=== PATIENT | female | born 1945 | race Caucasian/White ===

== ENCOUNTER 2018-03-09 15:59 | Outpatient (CLI) | payer MEDICARE, OTHER ==
[2018-03-09 16:23] LABS: BASOPHILS # (AUTO) 0.1 10^3/uL (0.0-0.1); EOSINOPHILS # (AUTO) 0.2 10^3/uL (0.0-0.7); EOSINOPHILS % (AUTO) 3.3 %; HGB - HEMOGLOBIN 11.7 g/dL (12.0-16.0); LYMPHOCYTES # (AUTO) 1.7 10^3/uL (1.5-3.5); LYMPHOCYTES % (AUTO) 31.3 %; MEAN CORPUSCULAR HGB CONC 32.7 g/dL (32.0-36.0); MEAN CORPUSCULAR VOLUME 91.7 fL (81.0-99.0); MEAN PLATELET VOLUME 7.2 fL (7.9-10.8); MONOCYTES # (AUTO) 0.5 10^3/uL (0.0-1.0); MONOCYTES % (AUTO) 9.7 %; NEUTROPHILS # (AUTO) 2.9 10^3/uL (1.5-6.6); NEUTROPHILS % (AUTO) 54.7 %; PLT - PLATELET COUNT 276 10^3/uL (130-450); RED BLOOD COUNT 3.89 10^6/uL (4.20-5.40); RED CELL DISTRIBUTION WIDTH 13.8 % (12.0-15.0); WHITE BLOOD COUNT 5.3 x10^3/uL (4.8-10.8)
[2018-03-09 16:30] LABS: PT - PROTHROMBIN TIME 11.8 secs (9.9-12.6)
[2018-03-09 16:35] LABS: ALBUMIN 4.2 g/dL (3.2-5.5); ALBUMIN/GLOBULIN RATIO 1.4 (1.0-2.2); BILIRUBIN,TOTAL 0.6 mg/dL (0.2-1.0); CALCIUM 8.9 mg/dL (8.5-10.3); CREATININE 1.2 mg/dL (0.4-1.0); TOTAL PROTEIN 7.2 g/dL (6.7-8.2)
[2018-03-09 17:27] LABS: THYROID STIMULATING HORMONE 3.03 uIU/mL (0.34-5.60)
[2018-03-09 17:29] LABS: FREE T4 (FREE THYROXINE) 0.99 ng/dL (0.58-1.64)
== END 2018-03-09 16:00 | disposition home or self-care (01) ==
LOC: LAB 15:59
PROVIDERS: ATTEND Internal Medicine Cardiovascular Disease
DX: I10 Essential (primary) hypertension (principal)
CPT/HCPCS: 36415; 80053; 84439; 84443; 85025; 85610

== ENCOUNTER 2018-05-18 13:44 | Emergency (ER) | payer MEDICARE, OTHER ==
[2018-05-18 15:19] LABS: BASOPHILS # (AUTO) 0.1 10^3/uL (0.0-0.1); BASOPHILS % (AUTO) 1.4 %; EOSINOPHILS # (AUTO) 0.2 10^3/uL (0.0-0.7); EOSINOPHILS % (AUTO) 3.8 %; HGB - HEMOGLOBIN 12.3 g/dL (12.0-16.0); LYMPHOCYTES # (AUTO) 1.7 10^3/uL (1.5-3.5); LYMPHOCYTES % (AUTO) 31.2 %; MEAN CORPUSCULAR HGB CONC 33.6 g/dL (32.0-36.0); MEAN CORPUSCULAR VOLUME 89.4 fL (81.0-99.0); MEAN PLATELET VOLUME 7.2 fL (7.9-10.8); MONOCYTES # (AUTO) 0.4 10^3/uL (0.0-1.0); MONOCYTES % (AUTO) 6.4 %; NEUTROPHILS # (AUTO) 3.2 10^3/uL (1.5-6.6); NEUTROPHILS % (AUTO) 57.2 %; PLT - PLATELET COUNT 327 10^3/uL (130-450); RED BLOOD COUNT 4.11 10^6/uL (4.20-5.40); RED CELL DISTRIBUTION WIDTH 13.9 % (12.0-15.0); WHITE BLOOD COUNT 5.6 x10^3/uL (4.8-10.8)
[2018-05-18 15:31] LABS: ALBUMIN 4.6 g/dL (3.2-5.5); ALBUMIN/GLOBULIN RATIO 1.5 (1.0-2.2); BILIRUBIN,TOTAL 0.5 mg/dL (0.2-1.0); CALCIUM 9.6 mg/dL (8.5-10.3); CREATININE 1.7 mg/dL (0.4-1.0); TOTAL PROTEIN 7.7 g/dL (6.7-8.2)
[2018-05-18 16:27] LABS: BILIRUBIN,URINE NEGATIVE (NEGATIVE); GLUCOSE, URINE (UA) NEGATIVE (NEGATIVE); KETONES,URINE (UA) NEGATIVE (NEGATIVE); LEUKOCYTE ESTERASE, URINE SMALL (NEGATIVE); NITRITE,URINE NEGATIVE (NEGATIVE); OCCULT BLOOD,URINE NEGATIVE (NEGATIVE); PH,URINE 5.5 PH (5.0-7.5); PROTEIN,URINE NEGATIVE (NEGATIVE); UROBILINOGEN,URINE 0.2 (NORMAL) E.U./dL (NORMAL)
[2018-05-18 16:29] LABS: CLARITY,URINE CLEAR (CLEAR)
[2018-05-18 16:38] LABS: BACTERIA,URINE None Seen /HPF (None Seen); RBC,URINE None Seen /HPF (0-5); SQUAMOUS EPITHELIAL CELL,UR MANY Squamous (<= Few)
[2018-05-18] MEDS ORDERED: SODIUM CHLORIDE 0.9% 1,000 ML IV ONE (17:48)
--- NOTE | 2018-05-18 17:49 | ED Physician Documentation ---
History of Present Illness - Stated complaint Stated Complaint: SOA - Chief complaint Chief Complaint: Neuro - History obtained from History obtained from: Patient - Additonal information Additional information: 72-year-old female reports lightheadedness, dizziness and shortness of breath in the mornings since starting 2 new medications. The patient's symptoms resolve as the day progresses.The patient currently is denying any significant dizziness or shortness of breath. The patient denies chest pain, URI symptoms abdominal pain vomiting or diarrhea. Symptoms make her a moderate. No other associated symptoms. 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: Hysterectomy - Present Medications Home Medications: Ambulatory Orders Medication Instructions Recorded Confirmed Atorvastatin [Lipitor] 40 mg PO DAILY 02/20/16 02/20/16 Hydrochlorothiazide 25 mg PO DAILY 02/20/16 02/20/16 Levothyroxine [Synthroid] 75 mcg PO DAILY 02/20/16 02/20/16 Lisinopril [Zestril] 40 mg PO DAILY #30 tablet 02/20/16 Nitroglycerin 0.4 mg SL Q5MIN PRN #1 bot 02/20/16 metFORMIN [Glucophage] 1,000 mg PO BID 02/20/16 02/20/16 Diphenoxylate HCl/Atropine 05/18/18 [Diphenoxylate-Atrop 2.5-0.025] Folic Acid 05/18/18 Omeprazole 05/18/18 Saccharomyces Boulardii [Florastor] 05/18/18 Spironolactone 05/18/18 Ubidecarenone [Coenzyme Q-10] 05/18/18 hydroCHLOROthiazide [Hydrodiuril] 05/18/18 metFORMIN [Glucophage] 05/18/18 traZODone [Desyrel] 05/18/18 - Allergies Allergies/Adverse Reactions: Allergies Allergy/AdvReac Type Severity Reaction Status Date / Time Sulfa (Sulfonamide Allergy Respiratory Verified 05/18/18 13:51 Antibiotics) - Social History Does the pt smoke?: No Smoking Status: Never smoker Does the pt drink ETOH?: No Does the pt have substance abuse?: No - Immunizations Immunizations are current?: Yes - POLST Patient has POLST: No Results - Vitals Vitals: Vital Signs - 24 hr 05/18/18 05/18/18 05/18/18 13:47 16:00 18:03 Temperature 36.1 C L 36.1 C L Heart Rate 80 80 69 Respiratory 22 20 16 Rate Blood Pressure 140/86 H 143/74 H 126/75 O2 Saturation 100 100 100 Oxygen O2 Source Room air - EKG (time done) No standard instances Rate: Rate (enter#) (73 BPM) Rhythm: NSR Intervals: Normal PA, QRS normal Ischemia: Normal ST segments Other comments: Other comments (Normal sinus rhythm with nonspecific changes, no acute ischemic changes) - Labs Labs: Laboratory Tests 05/18/18 05/18/18 05/18/18 15:06 15:06 15:06 WBC 5.6 RBC 4.11 L Hgb 12.3 Hct 36.7 L MCV 89.4 MCH 30.0 MCHC 33.6 RDW 13.9 Plt Count 327 MPV 7.2 L Neut # (Auto) 3.2 Lymph # (Auto) 1.7 [place] # (Auto) 0.4 Eos # (Auto) 0.2 Baso # (Auto) 0.1 Absolute Nucleated RBC 0.00 Nucleated RBC % 0.1 Sodium 132 L Potassium 4.2 Chloride 97 L Carbon Dioxide 23 Anion Gap 12.0 BUN 53 H Creatinine 1.7 H Estimated GFR (MDRD) 29 L Glucose 121 H Calcium 9.6 Total Bilirubin 0.5 AST 22 ALT 12 Alkaline Phosphatase 49 Troponin I < 0.04 Total Protein 7.7 Albumin 4.6 Globulin 3.1 Albumin/Globulin Ratio 1.5 Lipase 46 Urine Color Urine Clarity Urine pH Ur Specific [place] Urine Protein Urine Glucose (UA) Urine Ketones Urine Occult Blood Urine Nitrite Urine Bilirubin Urine Urobilinogen Ur Leukocyte Esterase Urine RBC Urine WBC Ur Squamous Epith Cells Urine Bacteria Ur Microscopic Review Urine Culture Comments 05/18/18 16:12 WBC RBC Hgb Hct MCV MCH MCHC RDW Plt Count MPV Neut # (Auto) Lymph # (Auto) [place] # (Auto) Eos # (Auto) Baso # (Auto) Absolute Nucleated RBC Nucleated RBC % Sodium Potassium Chloride Carbon Dioxide Anion Gap BUN Creatinine Estimated GFR (MDRD) Glucose Calcium Total Bilirubin AST ALT Alkaline Phosphatase Troponin I Total Protein Albumin Globulin Albumin/Globulin Ratio Lipase Urine Color YELLOW Urine Clarity CLEAR Urine pH 5.5 Ur Specific [place] 1.010 Urine Protein NEGATIVE Urine Glucose (UA) NEGATIVE Urine Ketones NEGATIVE Urine Occult Blood NEGATIVE Urine Nitrite NEGATIVE Urine Bilirubin NEGATIVE Urine Urobilinogen 0.2 (NORMAL) Ur Leukocyte Esterase SMALL H Urine RBC None Seen Urine WBC 0-3 Ur Squamous Epith Cells MANY Squamous H Urine Bacteria None Seen Ur Microscopic Review INDICATED Urine Culture Comments NOT INDICATED PD MEDICAL DECISION MAKING - ED course ED course: After IV hydration in the emergency department and food the patient's symptoms have resolved. The patient dizziness seems to be secondary to being placed on a new diuretic. 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 Presently the patient appears appropriate for discharge home in ongoing outpatient management. I discussed this plan with the patient and family who understand and agree. I discussed warning signs and recommended returning to the emergency department immediately for worsening or any concerns. - Sepsis Event Vital Signs: Vital Signs - 24 hr 05/18/18 05/18/18 05/18/18 13:47 16:00 18:03 Temperature 36.1 C L 36.1 C L Heart Rate 80 80 69 Respiratory 22 20 16 Rate Blood Pressure 140/86 H 143/74 H 126/75 O2 Saturation 100 100 100 Oxygen O2 Source Room air Departure - Departure Disposition: 01 Home, Self Care Clinical Impression: Dizziness Medication reaction Qualifiers: Encounter type: initial encounter Qualified Code(s): T50.905A - Adverse effect of unspecified drugs, medicaments and biological substances, initial encounter Condition: Good Instructions: ED Dizziness [facility]O Follow-Up: Jamar Guerra MD [Primary Care Provider] - Within 3 Days Comments: Please follow-up with your primary care and aluminum siding applicator for further medication management. Please return to the emergency department immediately for worsening or any concerns.
--- NOTE | 2018-05-18 18:18 | XRAY Report ---
Procedure Date: 05/18/2018 Accession Number: [id number] / [id number] Procedure: XR - Chest 2 View X-Ray CPT Code: 89141 FULL RESULT: EXAM: CHEST RADIOGRAPHY EXAM DATE: 05/18/2018 02:48 PM. CLINICAL HISTORY: Shortness of air COMPARISON: CHEST 1 VIEW 02/20/2016. TECHNIQUE: 2 views. FINDINGS: Lungs/Pleura: No focal opacities evident. No pleural effusion. No pneumothorax. Normal volumes. Mediastinum: There is a moderate to large hiatal hernia with air-fluid level. The heart size is normal. The trachea is midline. Other: None. IMPRESSION: Moderate to large hiatal hernia. Clear lungs. RADIA
[2018-05-18 20:02] VITALS: BP 144/77
== END 2018-05-18 20:02 | disposition home or self-care (01) ==
LOC: ED 13:44
DX: R42 Dizziness and giddiness (principal); T50.2X5A Adverse effect of carbonic-anhydrase inhibitors, benzothiadiazides and other diuretics, initial encounter; I10 Essential (primary) hypertension; E11.9 Type 2 diabetes mellitus without complications; Z79.84 Long term (current) use of oral hypoglycemic drugs
CPT/HCPCS: 36415; 71046; 80053; 81001; 81003; 83690; 84484; 85025; 87086; 93005; 96360; 99283

== ENCOUNTER 2019-10-20 03:47 | Outpatient (CLI) | payer MEDICARE, OTHER | END 2019-10-20 03:48 | disposition critical access hospital (66) | LOC: EMS 03:47 | PROVIDERS: ATTEND Surgery | DX: S09.92XA Unspecified injury of nose, initial encounter (principal); W18.39XA Other fall on same level, initial encounter; R55 Syncope and collapse; M54.2 Cervicalgia; R11.0 Nausea; Z94.7 Corneal transplant status; Y92.028 Other place in mobile home as the place of occurrence of the external cause; R94.31 Abnormal electrocardiogram [ECG] [EKG] | CPT/HCPCS: A0425; A0427 ==

== ENCOUNTER 2019-10-20 04:27 | Observation (INO) | payer MEDICARE, OTHER ==
[2019-10-20] MEDS ORDERED: SODIUM CHLORIDE 0.9% 500 ML IV STA (04:40)
--- NOTE | 2019-10-20 04:42 | ED Physician Documentation ---
History of Present Illness - Stated complaint Stated Complaint: GLF - Chief complaint Chief Complaint: Trauma Hd/Nk - Additonal information Additional information: This is a 74-year-old female with history of hypertension, type 2 diabetes, a trial fibrillation not on anticoagulation, who presents with facial pain after an episode of syncope. Patient states that she got up to let her dog out, when she was standing up she began to feel lightheaded, and then she passed out and fell forward hitting her face. She woke up and she had severe pain in her face, she had some bleeding as well. She called 911 who brought her here. She is complaining of some pain in her nose, she has a mild headache, she states that her neck hurt earlier but now is feels okay unless she presses on it directly. She denies any chest pain, abdominal pain, blood in her stool, dysuria. She does have a history of atrial fibrillation, But states she is typically in a normal sinus rhythm. 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 - Present Medications Home Medications: Ambulatory Orders Medication Instructions Recorded Confirmed Atorvastatin [Lipitor] 40 mg PO QPM 02/20/16 10/20/19 Levothyroxine [Synthroid] 75 mcg PO QDAC 02/20/16 10/20/19 Lisinopril [Zestril] 40 mg PO DAILY #30 tablet 02/20/16 10/20/19 Omeprazole 20 mg PO BID 05/18/18 10/20/19 Chlorthalidone 25 mg PO DAILY 10/20/19 10/20/19 Cholecalciferol (Vitamin D3) 5,000 unit PO DAILY 10/20/19 10/20/19 [Vitamin D3] Cranberry Conc/Ascorbic Acid [Eql 1 cap PO DAILY 10/20/19 10/20/19 Cranberry 6,000 mg Softgel] Metoprolol Succinate 200 mg PO DAILY 10/20/19 10/20/19 - Allergies Allergies/Adverse Reactions: Allergies Allergy/AdvReac Type Severity Reaction Status Date / Time Sulfa (Sulfonamide Allergy Respiratory Verified 05/18/18 13:51 Antibiotics) - Social History Does the pt smoke?: No Smoking Status: Never smoker Does the pt drink ETOH?: No Does the pt have substance abuse?: No - Immunizations Immunizations are current?: Yes - POLST Patient has POLST: No PD ED PE NORMAL - General General: Alert and oriented X 3, No acute distress - HEENT HEENT: Other (Abrasion over the nose and there is edema and tenderness of the nose as well. There is some ecchymosis around the bilateralOrbits. Other than the nose the face is nontender to palpation. There is some dried blood in the hair but a careful review of the scalp shows no lacerations, no hematomas.) - Neck Neck: Other (C-collar in place, there is mild tenderness to palpation of the mid C-spine.) - Cardiac Cardiac: Other (Tachycardic, irregularly irregular rhythm.) - Respiratory Respiratory: No respiratory distress, Clear bilaterally, Other (No chest wall tenderness) - Abdomen Abdomen: Soft, Non tender, Non distended - Back Back: Other (Back is atraumatic in appearance, there is no midline tenderness palpation of the thoracic or lumbar spine, or the sacrum) - Extremities Extremities: No deformity, No tenderness to palpate, Normal ROM s pain, No edema - Neuro Neuro: Alert and oriented X 3, 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, No motor deficit, No sensory deficit, Normal speech Results - Vitals Vitals: Vital Signs - 24 hr 10/20/19 10/20/19 10/20/19 04:31 06:15 06:22 Temperature 36.7 C Heart Rate 94 74 70 Respiratory 20 20 20 Rate Blood Pressure 161/99 H 157/83 H 150/86 H O2 Saturation 96 96 10/20/19 10/20/19 06:26 08:00 Temperature Heart Rate 71 64 Respiratory 15 Rate Blood Pressure 151/90 H 133/71 H O2 Saturation 97 Oxygen O2 Source Room air - EKG (time done) 4:49 Other comments: Other comments (Rate 141, rhythm atrial fibrillation, there is probable LVH with a very repolarization abnormality/lateral ST depression, this may also be a rate related. There is no ST segment elevation.) 7:01 Other comments: Other comments (Rate 68, rhythm sinus, there is LVH with slight less than [address] depression in 1 and V6, suggestive of a repolarization abnormality. There is no significant ST elevation. QTc 465) - Labs Labs: Laboratory Tests 10/20/19 10/20/19 10/20/19 04:49 04:49 04:49 WBC 9.5 RBC 4.80 Hgb 15.2 Hct 45.4 MCV 94.6 MCH 31.7 H MCHC 33.5 RDW 13.6 Plt Count 326 MPV 9.2 Neut # (Auto) 6.8 H Lymph # (Auto) 1.7 [place] # (Auto) 0.8 Eos # (Auto) 0.1 Baso # (Auto) 0.1 Absolute Nucleated RBC 0.00 Nucleated RBC % 0.0 PT 11.7 INR 1.0 Sodium 139 Potassium 3.1 L Chloride 97 L Carbon Dioxide 29 Anion Gap 13.0 BUN 26 H Creatinine 1.4 H Estimated GFR (MDRD) 37 L Glucose 180 H Calcium 9.5 Total Bilirubin 0.5 AST 25 ALT 16 Alkaline Phosphatase 60 Troponin I High Sens B-Natriuretic Peptide Total Protein 7.9 Albumin 4.5 Globulin 3.4 Albumin/Globulin Ratio 1.3 Lipase 41 TSH Urine Color Urine Clarity Urine pH Ur Specific [place] Urine Protein Urine Glucose (UA) Urine Ketones Urine Occult Blood Urine Nitrite Urine Bilirubin Urine Urobilinogen Ur Leukocyte Esterase Urine RBC Urine WBC Ur Squamous Epith Cells Urine Bacteria Ur Microscopic Review Urine Culture Comments 10/20/19 10/20/19 10/20/19 04:49 04:49 04:49 WBC RBC Hgb Hct MCV MCH MCHC RDW Plt Count MPV Neut # (Auto) Lymph # (Auto) [place] # (Auto) Eos # (Auto) Baso # (Auto) Absolute Nucleated RBC Nucleated RBC % PT INR Sodium Potassium Chloride Carbon Dioxide Anion Gap BUN Creatinine Estimated GFR (MDRD) Glucose Calcium Total Bilirubin AST ALT Alkaline Phosphatase Troponin I High Sens 14.9 H B-Natriuretic Peptide 120 H Total Protein Albumin Globulin Albumin/Globulin Ratio Lipase TSH 5.31 Urine Color Urine Clarity Urine pH Ur Specific [place] Urine Protein Urine Glucose (UA) Urine Ketones Urine Occult Blood Urine Nitrite Urine Bilirubin Urine Urobilinogen Ur Leukocyte Esterase Urine RBC Urine WBC Ur Squamous Epith Cells Urine Bacteria Ur Microscopic Review Urine Culture Comments 10/20/19 05:00 WBC RBC Hgb Hct MCV MCH MCHC RDW Plt Count MPV Neut # (Auto) Lymph # (Auto) [place] # (Auto) Eos # (Auto) Baso # (Auto) Absolute Nucleated RBC Nucleated RBC % PT INR Sodium Potassium Chloride Carbon Dioxide Anion Gap BUN Creatinine Estimated GFR (MDRD) Glucose Calcium Total Bilirubin AST ALT Alkaline Phosphatase Troponin I High Sens B-Natriuretic Peptide Total Protein Albumin Globulin Albumin/Globulin Ratio Lipase TSH Urine Color YELLOW Urine Clarity CLEAR Urine pH 7.0 Ur Specific [place] 1.015 Urine Protein 100 H Urine Glucose (UA) NEGATIVE Urine Ketones NEGATIVE Urine Occult Blood MODERATE H Urine Nitrite NEGATIVE Urine Bilirubin NEGATIVE Urine Urobilinogen 0.2 (NORMAL) Ur Leukocyte Esterase TRACE H Urine RBC 0-5 Urine WBC 6-10 H Ur Squamous Epith Cells FEW Squamous Urine Bacteria Few Ur Microscopic Review INDICATED Urine Culture Comments INDICATED - Rads (name of study) CT head, maxillofacial, C-spine Radiology: Other (Mildly displaced bilateral segmental nasal fractures and fracture of the bony nasal septum, otherwise no acute intracranial abnormality, no acute fracture or dislocation of the cervical spine) PD MEDICAL DECISION MAKING - ED course Complexity details: considered differential (Fracture, dislocation, intracranial hemorrhage, dysrhythmia, ACS,Electrolyte abnormality, UTI, anemia) ED course: On arrival patient is in spinal precautions. Vital signs reveal tachycardia she is in atrial fibrillation with rapid ventricular response. She has obvious facial trauma, she has no obvious trauma to her extremities: Chest, or abdomen. CT scans show a nasal fracture, otherwise no acute intracranial abnormality, no fractures of the cervical spine seen. CBC is unremarkable, CMP shows a mild, creatinine of 1.4 which is similar to past values patient has had, and BNP of 120. Her high-sensitivity troponin is 14.9, we do not have a past high- sensitivity troponin in our records, but she is not having any current chest latisha n, and ACS is less likely at this time. Her rhythm converted to sinus with 5 mg of metoprolol, and on repeat EKG she has some left ventricular hypertrophy but this is not significantly changed past EKGs, no convincing signs of acute ischemia or dysrhythmia. Her urine does show a possible UTI with 6-10 white blood cells, and some bacteria. She was given a dose of ceftriaxone for this. Her nose abrasion was cleaned, and careful secondary survey revealed no other injuries requiring repair or intervention at this time. I spoke with our hospitalist who agreed to admit the patient for further cardiac/syncope work- up.Patient continued to be well-appearing, she has no complaints this time other than her nose pain, and she continued to be in a sinus rhythm on the monitor.I did review care of her nasal fracture. Patient was subsequently admitted to the hospitalist service Departure - Departure Disposition: ED Place in Observation Clinical Impression: Syncope Qualifiers: Syncope type: unspecified Qualified Code(s): R55 - Syncope and collapse Atrial fibrillation Qualifiers: Atrial fibrillation type: paroxysmal Qualified Code(s): I48.0 - Paroxysmal atrial fibrillation Condition: Good Discharge Date/Time: 10/20/19 08:56
[2019-10-20 04:55] LABS: BASOPHILS # (AUTO) 0.1 10^3/uL (0.0-0.1); BASOPHILS % (AUTO) 0.6 %; EOSINOPHILS # (AUTO) 0.1 10^3/uL (0.0-0.7); EOSINOPHILS % (AUTO) 1.2 %; HGB - HEMOGLOBIN 15.2 g/dL (12.0-16.0); LYMPHOCYTES # (AUTO) 1.7 10^3/uL (1.5-3.5); LYMPHOCYTES % (AUTO) 17.7 %; MEAN CORPUSCULAR HEMOGLOBIN 31.7 pg (27.0-31.0); MEAN CORPUSCULAR HGB CONC 33.5 g/dL (32.0-36.0); MEAN CORPUSCULAR VOLUME 94.6 fL (81.0-99.0); MEAN PLATELET VOLUME 9.2 fL (7.9-10.8); MONOCYTES # (AUTO) 0.8 10^3/uL (0.0-1.0); MONOCYTES % (AUTO) 8.1 %; NEUTROPHILS # (AUTO) 6.8 10^3/uL (1.5-6.6); NEUTROPHILS % (AUTO) 71.9 %; PLT - PLATELET COUNT 326 10^3/uL (130-450); RED CELL DISTRIBUTION WIDTH 13.6 % (12.0-15.0); WHITE BLOOD COUNT 9.5 x10^3/uL (4.8-10.8)
[2019-10-20 05:10] LABS: ALBUMIN 4.5 g/dL (3.2-5.5); ALBUMIN/GLOBULIN RATIO 1.3 (1.0-2.2); BILIRUBIN,TOTAL 0.5 mg/dL (0.2-1.0); CALCIUM 9.5 mg/dL (8.5-10.3); CREATININE 1.4 mg/dL (0.4-1.0); TOTAL PROTEIN 7.9 g/dL (6.7-8.2)
[2019-10-20 05:27] LABS: BILIRUBIN,URINE NEGATIVE (NEGATIVE); GLUCOSE, URINE (UA) NEGATIVE (NEGATIVE); KETONES,URINE (UA) NEGATIVE (NEGATIVE); LEUKOCYTE ESTERASE, URINE TRACE (NEGATIVE); NITRITE,URINE NEGATIVE (NEGATIVE); OCCULT BLOOD,URINE MODERATE (NEGATIVE); PROTEIN,URINE 100 mg/dL (NEGATIVE); UROBILINOGEN,URINE 0.2 (NORMAL) E.U./dL (NORMAL)
[2019-10-20 05:30] LABS: PT - PROTHROMBIN TIME 11.7 secs (9.9-12.6)
[2019-10-20 05:32] LABS: CLARITY,URINE CLEAR (CLEAR)
--- NOTE | 2019-10-20 05:37 | CT Report ---
Reason: Facial trauma Procedure Date: 10/20/2019 Accession Number: [id number] / [id number] Procedure: CT - MAXILLOFACIAL WO CPT Code: Final Report FULL RESULT: EXAM: CT MAXILLOFACIAL WITHOUT CONTRAST EXAM DATE: 10/20/2019 05:25 AM. CLINICAL HISTORY: Facial trauma, injury, bloody face. COMPARISONS: HEAD W/O 10/20/2019 5:09 AM. TECHNIQUE: Thin-section axial images were acquired of the face without contrast. Post-processing: Coronal and sagittal reformats. Other: None. In accordance with CT protocol optimization, one or more of the following dose reduction techniques were utilized for this exam: automated exposure control, adjustment of mA and/or KV based on patient size, or use of iterative reconstructive technique. FINDINGS: Bones: Mildly displaced bilateral segmental nasal fractures and fracture of the bony nasal septum. No other displaced fracture or bone lesion. Temporomandibular Joints: The temporomandibular joints are symmetric and normally located. Sinuses: No significant abnormality. Other: None. IMPRESSION: Mildly displaced bilateral segmental nasal fractures and fracture of the bony nasal septum. RADIA
[2019-10-20 05:40] LABS: BACTERIA,URINE Few /HPF (None Seen); RBC,URINE 0-5 /HPF (0-5); SQUAMOUS EPITHELIAL CELL,UR FEW Squamous (<= Few)
--- NOTE | 2019-10-20 05:41 | CT Report ---
Reason: Neck trauma, midline tenderness Procedure Date: 10/20/2019 Accession Number: [id number] / [id number] Procedure: CT - CERVICAL SPINE WO CPT Code: Final Report FULL RESULT: EXAM: CT CERVICAL SPINE WITHOUT CONTRAST DATE: 10/20/2019 05:25 AM. HISTORY: Neck trauma, midline tenderness. Syncope. COMPARISONS: None. TECHNIQUE: Thin-section axial images were acquired of the cervical spine without contrast. Post-processing: Coronal and sagittal reformats. Other: None. In accordance with CT protocol optimization, one or more of the following dose reduction techniques were utilized for this exam: automated exposure control, adjustment of mA and/or KV based on patient size, or use of iterative reconstructive technique. FINDINGS: Alignment: There is no subluxation demonstrated. Bones: No fracture or bone lesion. Interspace Levels/Facets: There is moderate multilevel degenerative change of the spine, notably at C5-C6 and at C6-C7. Other: The paravertebral and prevertebral soft tissues are unremarkable. The lung apices are clear. IMPRESSION: 1. No acute bony abnormality. 2. Moderate C5-C6 and C6-C7 degenerative change. RADIA
[2019-10-20] MEDS ORDERED: METOPROLOL 5 MG/5 ML VIAL IVP STA (05:43)
[2019-10-20] MEDS ORDERED: fentaNYL 100 MCG/2 ML VIAL IVP STA (05:43)
--- NOTE | 2019-10-20 05:48 | CT Report ---
Reason: Head trauma, mod-severe, syncope Procedure Date: 10/20/2019 Accession Number: [id number] / [id number] Procedure: CT - HEAD WO CPT Code: Final Report FULL RESULT: EXAM: CT HEAD EXAM DATE: 10/20/2019 05:09 AM. CLINICAL HISTORY: Head trauma, mod-severe, syncope. COMPARISON: None. TECHNIQUE: Multiaxial CT images were obtained from the foramen magnum to the vertex. Reformats: Sagittal and coronal. IV contrast: None. In accordance with CT protocol optimization, one or more of the following dose reduction techniques were utilized for this exam: automated exposure control, adjustment of mA and/or KV based on patient size, or use of iterative reconstructive technique. FINDINGS: Parenchyma: No intraparenchymal hemorrhage. No evidence of mass, midline shift, or CT findings of infarction. Miller-white differentiation is distinct. Mild periventricular hypodensity is noted, nonspecific but most likely due to chronic microvascular ischemia. Extraaxial Spaces: Normal for age. No subdural or epidural collections identified. Ventricles: Normal in size and position. Sinuses and Orbits: Imaged paranasal sinuses, orbits, and mastoids show no significant abnormality. Changes of cataract extraction are noted bilaterally. Bones/Soft Tissues: Moderate nasal soft tissue swelling is visualized. There is a mildly displaced fracture of the right nasal bone. Deformity of the anterior bony nasal septum may reflect an associated telescoping injury. Other: Vascular calcification is visualized in the cavernous segments of the bilateral ICAs. IMPRESSION: 1. Nasal soft tissue swelling with mildly displaced right nasal bone fracture. 2. No evidence of acute intracranial hemorrhage or other acute intracranial pathology. 3. Mild white matter changes typical of chronic microvascular ischemia. RADIA
[2019-10-20] MEDS ORDERED: cefTRIAXone 1 GM in SODIUM CHLORIDE 0.9% MINIBAG 100 ML IV STA (06:17)
[2019-10-20] MEDS ORDERED: ONDANSETRON 4 MG/2 ML VIAL IVP STA (06:17)
[2019-10-20] MEDS ORDERED: SODIUM CHLORIDE FLUSH 0.9% 10 ML SYRINGE IVP PRN (08:33)
[2019-10-20] MEDS: ACETAMINOPHEN 325 MG TABLET PO PRN (11:29)
[2019-10-20] MEDS: SODIUM CHLORIDE FLUSH 0.9% 10 ML SYRINGE IVP SCH ×2 (11:29→18:05)
[2019-10-20 12:20] LABS: HEMOGLOBIN A1C 0.72 g/dL; HEMOGLOBIN A1C % 6.5 % (4.6-6.2)
[2019-10-20] MEDS: INSULIN ASPART 300 UNIT/3 ML PEN SUBQ SCH ×3 (12:24→21:40)
[2019-10-20] MEDS ORDERED: ACETAMINOPHEN/CODEINE 300 MG/30 MG TABLET PO PRN (13:07)
--- NOTE | 2019-10-20 13:42 | HISTORY & PHYSICAL EXAMINATION ---
DATE OF SERVICE: 10/20/2019 Physician: Josselyn Espinosa MD HISTORY OF PRESENT ILLNESS: This is a 74-year-old white female who lives alone with her dog. She has a history of prior atrial fibrillation and coronary angiography, which was done for marked fatigue and she states that she had normal coronary arteries, history of diabetes, previously on oral agent, but currently only diet controlled, history of hypertension and chronic low back pain. Patient was brought in by ambulance after she called 911. Patient states she got up during the night to let the dog out and as she was doing this, she developed sudden nausea and then dizziness and then had syncope onto the wooden porch outdoors. She woke up in a pool of blood, but was able to arise by herself and walk slowly to her recliner chair and from there was able to call an ambulance on her own. The ambulance run sheet is not available to know what the vital signs were at the scene. Patient remained awake after that point and states that in the ambulance, she developed her typical rapid palpitations, which she knows are a sign of atrial fibrillation. These continued until she was brought to the emergency room where she received IV metoprolol and this converted her to sinus rhythm. Patient denied any recent new medications, no eating at a restaurant or other reason that she should have nausea. This has never happened to her before. There was no rapid palpitations before the event of syncope. She denies any chest pain in general. She still does get her extreme fatigue with shortness of breath when she does activity and knows to stop and rest and then resume activity. In the emergency room, she was found to have fracture of her nasal bones, but other parts of her body were x-rayed and no other fractures were seen. PAST MEDICAL HISTORY 1. Paroxysmal atrial fibrillation. 2. Hypertension. 3. Diabetes mellitus, on diet only. 4. CKD. 5. Edentulous. 6. Episodic diarrhea of unknown etiology. ALLERGIES: SULFA. MEDICATIONS 1. Cranberry juice daily. 2. Vitamin D3 5000 units daily. 3. Lipitor 40 mg every night. 4. Metoprolol succinate 200 mg daily. 5. Omeprazole 20 mg b.i.d. 6. Zestril 40 mg daily. 7. HCTZ 25 mg daily. 8. Synthroid 75 mcg daily. FAMILY HISTORY: Cancer of the breast in her mother and colon cancer in the sister, diabetes and high cholesterol are on her father's side of the family. SOCIAL HISTORY: Patient is a nonsmoker, who never smoked, drinks no alcohol. She lives alone. She has had 2 children, 1 grown son lives with his on [facility]. The other grown son after complications after a spider bite. REVIEW OF SYSTEMS: Patient gets episodic diarrhea alternating with constipation. Patient is edentulous and had all her teeth pulled this spring and is working on a new set of dentures. Patient can feel episodes of rapid heart rate, which she thinks is her atrial fibrillation. Patient was on anticoagulation in the remote past and this was stopped about 2 years ago and her doctor said, " she does not need it anymore." Patient underwent coronary angiography years ago when her shortness of breath and fatigue began and patient states there was no coronary blockages found. Patient has never had syncope before. She denies any dysuria or diarrhea currently. A comprehensive review of systems was performed and the pertinent positives are listed, the rest are negative. PHYSICAL EXAMINATION GENERAL: Elderly white female. Her hair is disheveled. Her face has swelling of both lower eyelids and her nose and dried blood around the area over her nose. Oral mucosa moist. NECK: No JVD or thyromegaly. CHEST: Clear. HEART: Normal heart sounds without murmurs. ABDOMEN: Soft, nontender. EXTREMITIES: No clubbing, cyanosis or edema. NEUROLOGIC: Grossly intact. LABORATORY DATA: Sodium 139, potassium 3.1, BUN 26, creatinine 1.4. Her baseline creatinine ranges between 1.3 and 1.7, glucose is 180. A1c is 6.5. The first troponin was 14. BNP 120. TSH normal at 5.3. CBC unremarkable. INR normal. Urinalysis showed high protein, moderate occult blood, trace leukocyte esterase, and many white blood cells with a few squamous cells. CHEST X-RAY: No active pulmonary disease. EKG #1 Atrial fibrillation with a rapid rate and diffuse nonspecific ST-T changes. EKG #2 after she converted to sinus rhythm is at a rate of 64 with LVH strain pattern and RSR' present in V1 through V3. IMPRESSION/DIAGNOSES 1. Syncope. 2. Urinary tract infection. 3. Chronic kidney disease stage 3 4. Fall at home. 5. Nasal fracture. 6. Hypokalemia. 7. Abnormal EKG. 8. Hypothyroidism. 9. Paroxysmal atrial fibrillation. 10. Hypertension history. 11. Diabetes history. 12. Intermittent diarrhea. 13. Edentulous. PLAN: Place patient in Observation status on telemetry to watch for arrhythmias that may have caused this event of syncope. Obtain orthostatic vital signs. Put her on a diabetic, soft diet and monitor fingerstick glucoses at meals and at bedtime and start sliding scale insulin and hypoglycemic protocol. Continue with her thyroid medications. Continue with her beta tabitha and blood pressure medications, with hold orders if there is a low blood pressure. She received ceftriaxone for UTI in the ER and we will continue with this and then transitioned to oral agent. Correct the electrolyte abnormality. Treat pain from the nasal fracture. Watch her daily BMP with a low potassium and high creatinine. Obtain an Echo because of the mildly elevated BNP and abnormal EKG. CODE STATUS: FULL CODE. DEEP VENOUS THROMBOSIS PROPHYLAXIS: SCDs. ATTESTATION: Patient is expected to be discharged or transferred to another facility within 96 hours: Yes. TD: 10[facility]20/2019 13[facility]10 [facility]
[2019-10-20] MEDS: FAMOTIDINE 20 MG TABLET PO SCH (20:20)
[2019-10-20] MEDS ORDERED: traZODone 50 MG TABLET PO SCH (21:00)
[2019-10-20] MEDS ORDERED: ATORVASTATIN 40 MG TABLET PO SCH (21:00)
[2019-10-20] MEDS ORDERED: POTASSIUM CHLORIDE 20 MEQ TABLET PO ONE (22:29)
[2019-10-21] MEDS: SODIUM CHLORIDE FLUSH 0.9% 10 ML SYRINGE IVP SCH ×2 (01:15→08:42)
[2019-10-21 05:36] LABS: CALCIUM 9.2 mg/dL (8.5-10.3); CREATININE 1.3 mg/dL (0.4-1.0); MAGNESIUM 1.5 mg/dL (1.7-2.8)
[2019-10-21] MEDS: ACETAMINOPHEN 325 MG TABLET PO PRN ×3 (06:08→14:28)
[2019-10-21] MEDS ORDERED: LEVOTHYROXINE 75 MCG TABLET PO SCH (07:00)
[2019-10-21] MEDS: INSULIN ASPART 300 UNIT/3 ML PEN SUBQ SCH ×2 (07:53→12:01)
[2019-10-21] MEDS ORDERED: MAGNESIUM SULFATE 2 GRAM 2 GM/50 ML BAG IV ONE (08:00)
[2019-10-21] MEDS ORDERED: CHOLECALCIFEROL 5,000 UNIT CAPSULE PO SCH (09:00)
[2019-10-21] MEDS ORDERED: METOPROLOL SUCCINATE 50 MG TABLET PO SCH (09:00)
[2019-10-21] MEDS ORDERED: LISINOPRIL 40 MG PO SCH (09:00)
[2019-10-21] MEDS ORDERED: lisinopriL 20 MG TABLET PO SCH (09:00)
[2019-10-21] MEDS ORDERED: cefTRIAXone 1 GM in SODIUM CHLORIDE 0.9% MINIBAG 100 ML IV SCH (09:00)
[2019-10-21] MEDS: FAMOTIDINE 20 MG TABLET PO SCH (10:18)
--- NOTE | 2019-10-21 15:15 | Discharge Plan ---
Discharge Plan Problem Reviewed?: Yes Disposition: Home, Self Care Condition: Stable Prescriptions: Ciprofloxacin [Cipro] 250 mg PO Q12H #6 tablet Diet: Diabetic Activity Restrictions: Activity as Tolerated Shower Restrictions: No Instruction Topics: Syncope, Syncope Causes, Atrial Fibrillation Health Concerns: You were here to evaluate why you blacked out. The impression is that you were mildly dehydrated from diarrhea, being on a water pill and having a mild infection (urinary tract). A broken nasal bone was found from the trauma of the fall on your face. Plan of Treatment: Stop taking the hydrochlorothalidone. Take several more days of antibiotics for treating the urinary tract infection, a prescription was electronically sent to [facility] in [place]. Resume all your other medications and diabetic management. Use extra strength Tylenol as needed for pain control. If you need extra caregivers or home help, refer to the resources given to you by our [employer] See your PCP in the next 5 to 10 days for checking your nose, for hospital follow-up, for any prescription refills and to determine if you need adjustment of blood pressure medications. Care Goals: Bone fracture healing, avoiding future fainting, and stabilization for return to independent function. Assessment: The patient is in agreement with the plan Additional Instructions or Follow Up instructions: If you have new or worsening symptoms, contact your PCP or come to the ER. No Smoking: If you smoke, Please STOP! Call for help. Follow-up with: Jamar Guerra MD [Primary Care Provider] -
--- NOTE | 2019-10-21 16:01 | DISCHARGE SUMMARY ---
Discharge Summary Admit Date: 10/20/19 Discharge Date: 10/21/19 Discharging Provider: Dr Jamar Guerra Primary Care Provider: Dr Josselyn Espinosa Code Status: Attempt Resuscitation Condition at Discharge: Stable Discharge Disposition: 01 Home, Self Care - DIAGNOSES Admission Diagnoses: 1) Syncope 2) Paroxysmal Afib 3) Nasal fracture from fall at home 4) UTI Discharge Diagnoses with Status of Each Condition: See below - HPI History of Present Illness: This is a 74-year-old white female who lives alone with her dog, has a history of diabetes on diet only, hypothyroidism, hypertension, paroxysmal A. fib, no longer on anticoagulation. Patient awoke to let her dog out and felt suddenly nauseated while walking then dizzy and then fell flat on her face as she was exiting the house onto her wooden patio. She woke up in a pool of blood and was able to crawl inside and get to a chair and called an ambulance. She was brought to the emergency room. She was found to be in A. fib with RVR and she admitted feeling palpitations that started in the ambulance. She was given IV beta-tabitha and Cardizem boluses and converted to sinus rhythm. X-rays were done and ruled out spinal trauma but facial imaging showed she had a nasal fracture. Her urinalysis is abnormal: Elevated leukocyte Estrace, elevated white count and several bacteria seen. She was placed in Observation status on telemetry, to evaluate for causes of syncope. - HOSPITAL COURSE Hospital Course: 1) Syncope She had dry mucosa and elevated BUN/creatinine of 26/1.4 and dehydration was felt to be the cause of her syncope along with possible vasovagal etiology, given the initial symptom of nausea. Troponins were negative. She remained in sinus rhythm, no recurrence of A. fib. An Echo was done that showed normal LV function and grade 1 diastolic dysfunction and PA pressure upper limits of normal at 37 mmHg. She got gentle hydration by IV and her HCTZ was discontinued and she was told to stay off of HCTZ until it was resumed by her PCP, if needed. 2) UTI Her urinalysis was also abnormal with elevated Leukocyte esterase and white cells and bacteria. She got a dose of IV ceftriaxone in the ER. She was transitioned to oral Keflex and sent home with a prescription for Keflex along with probiotics. 3) Dehydration As in #1. The following day's BUN/creatinine were 26/1.3 4) CKD, stage III Her prior lab work shows that she runs creatinines of 1.1-1.7 5) Fall at home The syncopal episode caused the fall. 6) Nasal fracture She was offered ice packs and given pain medications, she did not request narcotics. She had improvement in her swelling by the second day. The patient reported that she had recent lens replacements bilaterally for cataracts and was worried that these had been damaged or moved. She was advised to see her athlete marketing agent because of this facial trauma. 7) Hypothyroidism Her TSH was good at 5.3. She was kept on her same thyroid medication while here. 8) Paroxysmal A. fib Patient reported a history of intermittent A. fib, which she can feel as "rapid palpitations". When she gets these, she slows down her activity and she claims that the arrhythmia ceases. Her CHADS score = 3 (hypertension, DM, age over 75). She would benefit from being on anticoagulant for stroke prophylaxis, but this was not begun now because of the extensive ecchymoses of her face. In addition if there are recurrent episodes of syncope or falls, her bleeding risk would be excessive. She needs to have follow-up with her specialist to determine her management. 9) Hypertension Orthostatic vital signs were checked on day 2 and were normal. This followed her IV hydration overnight. She was therefore advised to resume her Metoprolol and Lisinopril meds but stopped HCTZ. 10) Diabetes mellitus, on diet control Her A1c was 6.5; as such, she has very good control with a carb controlled diet only. 11) Intermittent diarrhea Ascertained from her review of systems with that she gets very frequent episodes of intermittent diarrhea. This could also be where her fluid losses occur. She has not been worked up for an etiology of this and it should be evaluated. 12) Edentulous. Her hygiene is therefore of concern. - ALLERGIES Allergies/Adverse Reactions: Allergies Allergy/AdvReac Type Severity Reaction Status Date / Time Sulfa (Sulfonamide Allergy Respiratory Verified 05/18/18 13:51 Antibiotics) - MEDICATIONS Home Medications: Ambulatory Orders Medication Instructions Recorded Confirmed Atorvastatin [Lipitor] 40 mg PO QPM 02/20/16 10/20/19 Levothyroxine [Synthroid] 75 mcg PO QDAC 02/20/16 10/20/19 Lisinopril [Zestril] 40 mg PO DAILY #30 tablet 02/20/16 10/20/19 Omeprazole 20 mg PO BID 05/18/18 10/20/19 Cholecalciferol (Vitamin D3) 5,000 unit PO DAILY 10/20/19 10/20/19 [Vitamin D3] Cranberry Conc/Ascorbic Acid [Eql 1 cap PO DAILY 10/20/19 10/20/19 Cranberry 6,000 mg Softgel] Metoprolol Succinate 200 mg PO DAILY 10/20/19 10/20/19 Ciprofloxacin [Cipro] 250 mg PO Q12H #6 tablet 10/21/19 - PHYSICAL EXAM AT DISCHARGE General Appearance: positive: Alert Eyes Bilateral: positive: Other (Periorbital hematomas that are red and purple, She is able to open her upper eyelids adequate) ENT: positive: Other (Lacerations and swelling with dried blood of the nose and upper lip) Neck: positive: Nml inspection Respiratory: positive: No respiratory distress, Breath sounds nml Cardiovascular: positive: Regular rate & rhythm, No murmur Abdomen: positive: Non-tender, No organomegaly, No distention Extremities: positive: No pedal edema Neurologic/Psychiatric: positive: Oriented x3, Other (Grossly intact) - LABS Result Diagrams: 10/20/19 04:49 10/21/19 05:10 - DIAGNOSTIC IMAGING Diagnostic Imaging Results: Final report reviewed - FOLLOW UP Follow Up: See PCP in the upcoming week. Have work-up for the intermittent diarrhea. Have evaluation for use of anticoagulation. - TIME SPENT Time Spent in Discharge (Minutes): 50
[2019-10-21 16:23] VITALS: BP 166/76
== END 2019-10-21 16:08 | disposition home or self-care (01) ==
LOC: EDUNIT# → ED 04:27 → MS2 08:32
PROVIDERS: ADMIT Internal Medicine; ATTEND Internal Medicine
DX: E86.0 Dehydration (principal); T50.2X5A Adverse effect of carbonic-anhydrase inhibitors, benzothiadiazides and other diuretics, initial encounter; R55 Syncope and collapse; I48.0 Paroxysmal atrial fibrillation; S02.2XXA Fracture of nasal bones, initial encounter for closed fracture; S01.511A Laceration without foreign body of lip, initial encounter; W18.39XA Other fall on same level, initial encounter; Y92.008 Other place in unspecified non-institutional (private) residence as the place of occurrence of the external cause; N39.0 Urinary tract infection, site not specified; E11.22 Type 2 diabetes mellitus with diabetic chronic kidney disease; I13.10 Hypertensive heart and chronic kidney disease without heart failure, with stage 1 through stage 4 chronic kidney disease, or unspecified chronic kidney disease; N18.3 Chronic kidney disease, stage 3 (moderate); E87.6 Hypokalemia; K52.9 Noninfective gastroenteritis and colitis, unspecified; R79.89 Other specified abnormal findings of blood chemistry; E03.9 Hypothyroidism, unspecified; M47.812 Spondylosis without myelopathy or radiculopathy, cervical region; K08.109 Complete loss of teeth, unspecified cause, unspecified class; Z79.899 Other long term (current) drug therapy; Z98.42 Cataract extraction status, left eye; Z98.41 Cataract extraction status, right eye; Z96.1 Presence of intraocular lens
CPT/HCPCS: 36415; 70450; 70486; 72125; 80048; 80053; 81001; 83036; 83690; 83735; 83880; 84443; 84484; 85025; 85610; 87086; 93005; 93306; 96361; 96365; 96366; 96367; 96368; 96375; 99284; 99285; A9270; G0378; 81003

== ENCOUNTER 2019-11-29 10:43 | Outpatient (CLI) | payer MEDICARE, OTHER ==
--- NOTE | 2019-11-29 16:28 | XRAY Report ---
Reason: FRACTURE OF NASAL BONES Procedure Date: 11/29/2019 Accession Number: [id number] / [id number] Procedure: XRS - Facial Bones Complete CPT Code: Final Report FULL RESULT: EXAM: FACIAL BONES RADIOGRAPHY 5 VIEW EXAM DATE: 11/29/2019 11:09 AM. CLINICAL HISTORY: History of nasal bone fracture on 10/20/2019. Patient feels there is a pine needle under the skin from the fall causing irritation. COMPARISON: Maxillofacial CT done 10/20/2019. TECHNIQUE: FuchsAmita, lateral and zygomatic arch views. FINDINGS: Bones: The nasal bone fractures better demonstrated on the CT. No other osseous abnormality. Sinuses: The sinuses are clear, no mucosal thickening or air-fluid levels. Soft Tissues: Normal. No radiopaque foreign body visible on the standard radiographs, or on the prior CT. IMPRESSION: Fracture of the nasal bones, better demonstrated on the maxillofacial CT done 10/20/2019. Otherwise normal examination. No soft tissue foreign body visible. RADIA
== END 2019-11-29 10:44 | disposition home or self-care (01) ==
LOC: DI.S 10:43
PROVIDERS: ATTEND Nurse Practitioner Family
DX: S02.2XXD Fracture of nasal bones, subsequent encounter for fracture with routine healing (principal)
CPT/HCPCS: 70150

== ENCOUNTER 2020-07-14 18:54 | Outpatient (CLI) | payer MEDICARE, OTHER | END 2020-07-14 18:55 | disposition E | LOC: EMS 18:54 | PROVIDERS: ATTEND Surgery | DX: I46.9 Cardiac arrest, cause unspecified (principal) | CPT/HCPCS: A0425; A0429 ==